=== PATIENT | female | born 1980 | race African-American/Black ===

== ENCOUNTER 2018-01-13 18:34 | Emergency (ER) | payer BC | END 2018-01-13 20:20 | disposition left against medical advice (07) | LOC: ERS 18:34 | DX: Z53.21 Procedure and treatment not carried out due to patient leaving prior to being seen by health care provider (principal) ==

== ENCOUNTER 2018-01-13 21:19 | Emergency (ER) | payer BC, OTHER | END 2018-01-13 22:42 | disposition home or self-care (01) | LOC: SCSER 21:19 | DX: J32.9 Chronic sinusitis, unspecified (principal); F17.210 Nicotine dependence, cigarettes, uncomplicated | CPT/HCPCS: 99406 ==

== ENCOUNTER 2018-02-20 18:51 | Emergency (ER) | payer BC, OTHER, SELFPAY ==
[2018-02-20] MEDS ORDERED: Ketorolac Tromethamine 30 MG/ML VIAL ONE (19:42)
[2018-02-20] MEDS ORDERED: Morphine 4 MG/ML VIAL ONE (19:42)
[2018-02-20 20:09] LABS: #Basophils 0.1 thou/uL (0.0-0.2); #Eosinphils 0.6 thou/uL (0.0-0.7); #Lymphocytes 2.5 thou/uL (1.20-3.40); #Monocytes 0.5 thou/uL (0.11-0.59); %Basophils 1.6 % (0.0-1.0); %Eosinophils 8.4 % (0.0-10.0); %Lymphocytes 37.3 % (21.0-51.0); %Monocytes 7.1 % (0.0-10.0); %Neutrophils 45.6 % (42.0-75.0); Hemoglobin 13.5 g/dL (12.0-16.0); Mean Corpuscular HGB CONC 33.4 g/dL (32.0-36.0); Mean Corpuscular Hemoglobin 30.6 pg (27.0-31.0); Mean Corpuscular Volume 91.6 fl (81.0-99.0); Mean Platelet Volume 7.7 fL (7.4-10.4); Platelet Count 262 thou/uL (130-400); RBC Distribution Width 13.3 % (11.5-14.5); White Blood Cell (WBC) Count 6.6 thou/uL (4.8-10.8)
[2018-02-20 20:29] LABS: ALT (SGPT) 13 U/L (8-55); AST (SGOT) 20 U/L (5-34); Alkaline Phosphatase 92 U/L (40-150); Anion Gap 13 mmol/L (10-20); BUN (Urea Nitrogen) 12 mg/dL (7.0-18.7); Bilirubin, Total 0.3 mg/dL (0.2-1.2); Calc. Creatinine Clearance 0 mL/min (70-130); Calcium 9.3 mg/dL (7.8-10.44); Carbon Dioxide 23 mmol/L (22-29); Chloride 107 mmol/L (98-107); Estimated GFR-MDRD Greater than 90; Globulin 3.6 g/dL (2.4-3.5); Glucose 106 mg/dL (70-105); Lipase 154 U/L (8-78); Potassium 4.5 mmol/L (3.5-5.1); Protein, Total 7.6 g/dL (6.0-8.3); Sodium 138 mmol/L (136-145)
[2018-02-20 21:12] LABS: Bilirubin Small (Negative); Blood, Urine Negative (Negative); Clarity CLEAR (Clear); Glucose, Urine (Dipstick) Negative (Negative); Leukocyte Negative (Negative); Nitrite Negative (Negative); Pregnancy Test - Urine (BHCG) Negative (Negative); Pregu Control Background? CLEAR/WHITE (CLR/WHITE); Pregu Control Bar Appear? YES (CONTROL BAR); Protein, Urine (Dipstick) Negative (Neg-Trace); Specific Gravity 1.037 (1.002-1.036); Specific Gravity, Urine 1.037 (1.002-1.036)
--- NOTE | 2018-02-20 22:25 | CT ---
NONCONTRAST CT ABDOMEN AND PELVIS: 02/20/18 HISTORY: Left flank pain with radiation of pain to the back since 9 a.m. this morning. COMPARISON: Contrasted study on 04/20/17. FINDINGS: There are two stable subcentimeter hypodense lesions seen within the inferior aspect posterior segmen t right hepatic lobe with are too small to further characterize. The lung bases, spleen, pancreas, bilateral adrenal glands, kidneys, and uterus demonstrate a grossl y normal nonenhanced CT appearance. The urinary bladder is decompressed but also grossly normal in ap pearance. No renal or ureteral calculi are seen bilaterally, and there is no hydronephrosis seen. Phleboliths are again seen in the pelvis. The appendix is visualized and normal in caliber. A few colonic diverticula are seen without CT evidence of diverticulitis. There is a small to moderat e amount of retained fecal material seen throughout the colon. Small fat containing umbilical hernia is noted. Dominant follicles are seen within the region of the left ovary. The previously noted large cyst in t he left adnexal region is not seen on today's exam. IMPRESSION: 1. No renal or ureteral calculi are seen bilaterally, and there is no evidence of hydronephrosis . 2. No CT evidence of appendicitis. 3. Constipation with colonic diverticulosis. POS: JAMES
== END 2018-02-20 22:18 | disposition home or self-care (01) ==
LOC: ERS 18:51
DX: Z79.899 Other long term (current) drug therapy; F17.210 Nicotine dependence, cigarettes, uncomplicated; R10.32 Left lower quadrant pain
CPT/HCPCS: 74176; 80053; 81003; 81025; 83690; 85025; 96374; 96375; J1885; J2270

== ENCOUNTER 2018-03-23 13:59 | Outpatient (CLI) | payer OTHER ==
--- NOTE | 2018-03-23 16:27 | ULT ---
PELVIC ULTRASOUND: 03/23/18 COMPARISON: CT abdomen/pelvis 02/20/18. HISTORY: Lower abdominal and pelvic pain that is intermittent for two years and is associated with sexual inte rcourse. TECHNIQUE: Multiplanar beaver scale and color doppler images were obtained in a transabdominal and transvaginal pe lvic ultrasound. Spectral analysis of the doppler waveforms were performed. FINDINGS: The uterus is enlarged and contains intramural and exophytic masses measuring up to 2.7 cm in size. T hese represent fibroids. The endometrial stripe is upper limits of normal measuring 9 mm. No free fluid is seen in the pelvis. The right ovary is normal in size and appearance and demonstrate normal internal flow. Left ovary is not visualized. IMPRESSION: Fibroid uterus. POS: MEGA
== END 2018-03-23 14:00 | disposition home or self-care (01) ==
LOC: SCSULT 13:59
PROVIDERS: ATTEND Family Medicine
DX: R10.2 Pelvic and perineal pain (principal); D25.9 Leiomyoma of uterus, unspecified
CPT/HCPCS: 76856

== ENCOUNTER 2018-12-10 11:14 | Emergency (ER) | payer BC, OTHER ==
[2018-12-10] MEDS ORDERED: predniSONE 20 MG TAB ONE (12:42)
--- NOTE | 2018-12-10 14:11 | RAD ---
FRONTAL AND LATERAL IMAGING CHEST: Date: 12-10-18 Comparison: 11-20-16 History: Cough, asthma. FINDINGS: There is no pneumothorax, pleural fluid, focal consolidation, or alveolar edema. Heart and mediastina l contours are stable. No acute findings are seen. IMPRESSION: No acute findings. POS: [facility]
== END 2018-12-10 13:52 | disposition home or self-care (01) ==
LOC: ERS 11:14
DX: J45.901 Unspecified asthma with (acute) exacerbation (principal); J06.9 Acute upper respiratory infection, unspecified; F17.210 Nicotine dependence, cigarettes, uncomplicated; Z79.899 Other long term (current) drug therapy
CPT/HCPCS: 71046; 94640; J7506; J7620

== ENCOUNTER 2019-02-08 14:29 | Outpatient (CLI) | payer BC ==
--- NOTE | 2019-02-08 16:07 | ULT ---
RIGHT BREAST ULTRASOUND: HISTORY: Bilateral breast pain. FINDINGS: Sonographic evaluation of the regions of pain in the right upper breast and in the left breast (1 thr ough 6 o'clock) demonstrate no abnormality. IMPRESSION: BI-RADS category 1-Negative. Return to annual mammographic screening. POS: OFF
--- NOTE | 2019-02-24 14:35 | MMO ---
Bilateral MAMMO Bilat Diag [facility]. CLINICAL HISTORY: Patient is 38 years old and is seen for diagnostic exam. The patient has the following family history of breast cancer: mother, at age 31. The patient has no personal history of cancer. VIEWS: The views performed were: bilateral craniocaudal with tomosynthesis; bilateral mediolateral oblique with tomosynthesis; and bilateral mediolateral. FILMS COMPARED: The present examination has been compared to prior imaging studies performed at [facility] on 04/18/2013 and 02/08/2019. MAMMOGRAM FINDINGS: There are scattered fibroglandular densities. There are no suspicious masses, suspicious calcifications, or new areas of architectural distortion. IMPRESSION: THERE IS NO MAMMOGRAPHIC EVIDENCE OF MALIGNANCY. A ROUTINE FOLLOW-UP MAMMOGRAM IN 1 YEAR IS RECOMMENDED. THE RESULTS OF THIS EXAM WERE SENT TO THE PATIENT. ACR BI-RADS Category 1 - Negative MAMMOGRAPHY NOTE: 1. A negative mammogram report should not delay a biopsy if a dominant of clinically suspicious mass is present. 2. Approximately 10% to 15% of breast cancers are not detected by mammography. 3. Adenosis and dense breasts may obscure an underlying neoplasm.
== END 2019-02-08 14:30 | disposition home or self-care (01) ==
LOC: BICMAMMO 14:29
PROVIDERS: ATTEND Nurse Practitioner Family
DX: N64.4 Mastodynia (principal); Z80.3 Family history of malignant neoplasm of breast
CPT/HCPCS: 77066; G0279

== ENCOUNTER 2020-01-15 18:30 | Observation (INO) | payer BC, SELFPAY ==
[2020-01-15 19:26] LABS: #Basophils 0.1 thou/uL (0.0-0.2); #Eosinphils 1.1 thou/uL (0.0-0.7); #Lymphocytes 2.4 thou/uL (1.20-3.40); #Monocytes 0.9 thou/uL (0.11-0.59); #Neutrophils 4.2 thou/uL (1.40-6.50); %Basophils 0.8 % (0.0-1.0); %Eosinophils 12.3 % (0.0-10.0); %Lymphocytes 28.3 % (21.0-51.0); %Monocytes 10.6 % (0.0-10.0); Hemoglobin 6.5 g/dL (12.0-16.0); Mean Corpuscular HGB CONC 29.2 g/dL (32.0-36.0); Mean Corpuscular Hemoglobin 19.8 pg (27.0-31.0); Mean Corpuscular Volume 67.6 fL (78.0-98.0); Mean Platelet Volume 8.6 fL (7.4-10.4); Platelet Count 404 thou/uL (130-400); Red Blood Cell (RBC) Count 3.31 mill/uL (4.20-5.40); White Blood Cell (WBC) Count 8.6 thou/uL (4.8-10.8)
[2020-01-15 19:43] LABS: ALT (SGPT) 14 U/L (8-55); AST (SGOT) 19 U/L (5-34); Albumin 4.2 g/dL (3.5-5.0); Alkaline Phosphatase 86 U/L (40-110); Anion Gap 11 mmol/L (10-20); Anisocytosis SLIGHT = 6-15 cells (100X) (0-5/hpf); BUN (Urea Nitrogen) 6 mg/dL (7.0-18.7); Bilirubin, Total 0.3 mg/dL (0.2-1.2); Calc. Creatinine Clearance 0 mL/min (70-130); Calcium 9.2 mg/dL (7.8-10.44); Carbon Dioxide 26 mmol/L (22-29); Chloride 105 mmol/L (98-107); Estimated GFR-MDRD Greater than 90; Globulin 3.2 g/dL (2.4-3.5); Glucose 94 mg/dL (70-105); Hypochromia MODERATE=16-30 cells (100X) (0-5/hpf); MDiff Complete? YES; Microcytosis MODERATE=15-30 cells (100X) (0-5/hpf); Platelet Morphology Comment Appears Increased; Polychromasia MODERATE = 3-4 cells (100X) (0-2/hpf); Potassium 4.5 mmol/L (3.5-5.1); Protein, Total 7.4 g/dL (6.0-8.3); Schistocytes SLIGHT = 2-5 cells (100X) (0-1/hpf); Sodium 137 mmol/L (136-145); Target Cells SLIGHT = 2-5 cells (100X) (0-1/hpf); Tear Drops SLIGHT = 2-5 cells (100X) (0-1/hpf)
[2020-01-15] MEDS ORDERED: Pantoprazole 40 MG VIAL IVP SCH (22:15)
--- NOTE | 2020-01-15 23:04 | HP ---
PRIMARY CARE PHYSICIAN: Gaye Becerril NP CHIEF COMPLAINT: Weakness and fatigue, hematochezia x2 weeks. HISTORY OF PRESENT ILLNESS: The patient is a 39-year-old female with a past medical history significant for anemia, fibroids, and GERD, who presents to the ER with the above complaint. The patient reports over the past week, she has been feeling significantly tired and weak. She reports that on Thursday evening, "I got really bad", reporting diarrhea, approximately 5-10 stools per day with bright red blood. She reports some associated abdominal cramping and nausea. She reports seeing some clots in the toilet bowl. Reports pain with BMs, She denies any vomiting, hematemesis, or any chronic NSAID usage. She denies any vaginal discharge or bleeding. Although she does report that her menstrual periods have been irregular, she has not had one in the last 30 days. Her last episode of bloody stool was yesterday, she has had none today, She denies any chest pain. She denies any shortness of breath. She denies any fever or chills. The patient had a colonoscopy 3 years ago and there were some benign polyps removed and she was diagnosed with some internal hemorrhoids. In the ER, the patient was found to be hemodynamically stable. Vital signs; temperature 98.3, blood pressure 120/66, heart rate of 87, respirations of 18. She is 99% on room air. Her hemoglobin was found to be 6.5. Her hematocrit was 22.3. FOBT still is pending. The patient was typed and crossed with orders to transfuse 2 units when ready. PAST MEDICAL HISTORY: Significant for, 1. Anemia. 2. Fibroids. 3. GERD. 4. Seasonal allergies. PAST SURGICAL HISTORY: 1. The patient has had a tubal ligation. 2. x2. ALLERGIES: THE PATIENT REPORTS NO KNOWN DRUG ALLERGIES, DENIES ANY ALLERGIES TO AMOXICILLIN. MEDICATIONS: The patient takes, 1. Zyrtec 10 mg p.o. daily. 2. Omeprazole 40 p.o. daily. 3. Albuterol HFA inhaler 1 to 2 puffs p.r.n. wheezing or shortness of breath. SOCIAL HISTORY: The patient lives in [place] with her 2 children. 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 She admits to smoking 2 to 3 cigarettes per day, uses marijuana intermittently, and drinks socially. FAMILY HISTORY: Noncontributory for cardiac disease, noncontributory for pulmonary disease. REVIEW OF SYSTEMS: All other review of systems are negative unless otherwise noted in the HPI. PHYSICAL EXAMINATION: VITAL SIGNS: Temperature 98.3 Fahrenheit oral, blood pressure 120/66, heart rate 87, respirations 16. The patient is 99% on room air. Vital Signs Reviewed, Patient afebrile, Pulse normal, Blood pressure, hypertensive, Respiratory rate normal, Patient alert and oriented to person, place and time. Head exam normal, Head exam included findings of head atraumatic, normocephalic. Eye exam normal, Eye exam included findings of eyelids normal to inspection, Pupils equally round and reactive to light, Extraocular muscles intact, no nystagmus. Neck exam normal, Neck exam included findings of normal range of motion, Trachea midline, no meningeal signs, no cervical adenopathy, no tenderness. Respiratory and chest exam normal, Respiratory exam included findings of no respiratory distress, Breath sounds clear. Cardiovascular assessment normal, Cardiovascular exam included findings of heart rate regular rate and rhythm, Heart sounds normal. Abdominal exam included findings of abdomen nontender, Active bowel sounds, no distension, no mass, no pulsatile masses, no peritoneal signs, no rigidity, no guarding, no rebound, Rovsing's sign absent. Back exam normal, Back exam included findings of normal inspection, range of motion normal, no tenderness. Upper extremity exam normal, Upper extremity exam included findings of inspection normal, Range of motion normal, Motor strength normal, Sensation intact, Radial pulse normal. Lower extremity exam normal, Lower extremity exam included findings of inspection normal, Range of motion normal, Motor strength normal, Sensation intact, Posterior tibial pulse normal, Pedal pulse normal. Neuro exam normal, Neuro exam findings include patient oriented to person, place and time, Speech normal. Skin exam normal, Skin exam included findings of skin warm, dry, and normal in color, no rash. LABORATORY DATA: White blood cell count was 8.6, red blood cells 3.31, hemoglobin 6.5, hematocrit 22.3, platelets 404. Sodium is 137, potassium 4.5, chloride 105 , carbon dioxide 26, BUN 6, creatinine 0.83, glucose 94, calcium 9.2. AST 19, ALT 14, alkaline phosphatase 86. EKG; normal sinus rhythm. IMPRESSION: 1. Gastrointestinal bleed. 2. Acute blood loss anemia. 3. History of anemia. 4. History of fibroids. 5. Gastroesophageal reflux disease. 6. Seasonal allergies. 7. Marijuana abuse 8. Tobacco abuse PLAN: The patient's hemoglobin was 6.5. The patient has been typed and crossed for 2 units of packed red blood cells. We will transfuse 2 units of packed red blood cells. We will recheck hemoglobin and hematocrit q.4 hours. We will make the patient n.p.o. We will consult GI. We will check iron studies, PT, INR, and urine . We will place the patient on PPI q.12. We will infuse IV fluids, normal saline. We will check orthostatics q. shift. Restart home medications when reconciled by nursing. Hold blood thinners. No DVT prophylaxis. Full Code REXOA Nehal Caruso @ [phone]. Job ID: [id number] MTDD
[2020-01-15 23:18] VITALS: BMI 43.5
[2020-01-15] MEDS: Sodium Chloride 0.9% 1,000 ML IV SCH (23:39)
[2020-01-16] MEDS ORDERED: Sodium Chloride 0.65% Nasal 44 ML BOT EA NARE PRN (01:50)
[2020-01-16] MEDS: Cetirizine HCl 10 MG TAB PO SCH ×2 (03:33→03:42)
[2020-01-16] MEDS: Sodium Chloride 0.9% 1,000 ML IV SCH ×3 (03:35→18:21)
[2020-01-16 04:40] LABS: BHCG - Serum Negative (NEGATIVE); Pregs Control Background? CLEAR/WHITE (CLR/WHITE); Pregs Control Bar Appear? YES (CONTROL BAR)
[2020-01-16] MEDS ORDERED: diphenhydrAMINE 25 MG CAP PO SCH (04:45)
[2020-01-16 04:48] LABS: PTT 25.2 SEC (22.9-36.1); Prothrombin Time 12.8 SEC (12.0-14.7)
[2020-01-16 04:54] LABS: Iron 58 ug/dL (50-170); Iron Binding Capacity, Total 504 mcg/dL (265-497)
[2020-01-16 05:21] LABS: Ferritin 2.04 ng/mL (10-291)
[2020-01-16 05:51] LABS: #Basophils 0.1 thou/uL (0.0-0.2); #Lymphocytes 2.9 thou/uL (1.20-3.40); #Monocytes 0.7 thou/uL (0.11-0.59); #Neutrophils 3.9 thou/uL (1.40-6.50); %Basophils 1.1 % (0.0-1.0); %Eosinophils 11.4 % (0.0-10.0); %Monocytes 8.1 % (0.0-10.0); %Neutrophils 45.5 % (42.0-75.0); Anisocytosis MODERATE=16-30 cells (100X) (0-5/hpf); Hemoglobin 8.8 g/dL (12.0-16.0); MDiff Complete? YES; Mean Corpuscular HGB CONC 31.2 g/dL (32.0-36.0); Mean Corpuscular Hemoglobin 22.9 pg (27.0-31.0); Mean Corpuscular Volume 73.2 fL (78.0-98.0); Platelet Count 403 thou/uL (130-400); RBC Distribution Width 22.7 % (11.5-14.5); Red Blood Cell (RBC) Count 3.84 mill/uL (4.20-5.40); White Blood Cell (WBC) Count 8.6 thou/uL (4.8-10.8)
[2020-01-16] MEDS ORDERED: hydrOXYzine 25 MG TAB PO SCH (06:45)
[2020-01-16] MEDS ORDERED: Pantoprazole 40 MG VIAL IVP SCH ×2 (09:00)
[2020-01-16 19:14] VITALS: BP 125/74; TEMP 98.1
--- NOTE | 2020-01-17 01:33 | CON ---
DATE OF CONSULTATION: 01/16/2020 REASON FOR CONSULTATION: Hematochezia, anemia due to blood loss. HISTORY OF PRESENT ILLNESS: Ms. Carmen Hall is a 39-year-old female hospitalized with lots of hematochezia, anemia due to blood loss, weakness and fatigue etc. She is feeling actually whole lot better today. She has had no bleeding today. She is very anxious to get home. The patient had seen me I believe 2 to 3 years ago and also has seen Dr. Javan Mitchell in April 2017. She has a history of hematochezia over the years and has anemia over the years. She had a colonoscopy in April 2017 and was found to have hemorrhoids. No other pathology seen. She also had an EGD done, which was negative for any pathology. The patient has history of hematochezia off and on. She has history of constipation off and on. When she strains during bowel movement, she has seen large amount of blood. Also when the stool is soft, she has seen some blood in the commode. She has no history of heavy menstrual blood loss. In fact, her menstrual cycles are tapering off and she has been having every other month. She had periods in November 2019 and no periods in December. The patient never bleeds heavily as per the patient. The patient has had hematochezia, which is actually painless and also some loose stools off and on. No history of any fever. There is remote history of ulcerative colitis in 2011 when she was living in [place]. However, she had a colonoscopy I believe in 2015 locally and was negative. In 2016, she had a colonoscopy and was negative for any pathology. She had no history of any fever, no weight loss. She had abdominal pain, nausea, and vomiting. No relevant history. MEDICAL ILLNESSES: 1. Anemia. 2. Fibroids. 3. Hemorrhoids from previous colonoscopy. 4. Chronic acid reflux. 5. Seasonal allergies. PAST SURGICAL HISTORY: Tubal ligation, x2. ALLERGIES: ALLERGIC TO AMOXICILLIN. MEDICATIONS: At home include; 1. Zyrtec. 2. Omeprazole. 3. Albuterol inhaler. SOCIAL HISTORY: The patient lives in [place]. She works for [employer]. She smokes 2 to 4 cigarettes per day. Drinks socially. She uses marijuana off and on. FAMILY HISTORY: No family history of heart disease. No cancer. No CVA. REVIEW OF SYSTEMS: A 10-point system review remarkable basically for fatigue, tiredness, hematochezia, rectal bleeding and diarrhea. PHYSICAL EXAMINATION: GENERAL: She is obese, appears very comfortable. She is awake, alert, oriented to time, place, and person. VITAL SIGNS: She is afebrile. Pulse is 80, blood pressure 130/70. HEENT: Conjunctivae are clear. NECK: Supple. No adenitis or thyromegaly noted. CARDIOVASCULAR: First and second heart sounds heard. LUNGS: Clear to auscultation. ABDOMEN: Soft. No organomegaly. No tenderness. No masses. EXTREMITIES: Reveal no edema. LABORATORY DATA: CBC; WBC 8,600, hemoglobin 6.5, hematocrit 22.3, MCV 67.6, platelet count 404,000, polymorphs 48, lymphocytes 28, monocytes 10. Post transfusion hemoglobin 9.9, hematocrit 29.1. Chem-7 is actually normal. LFTs normal. CLINICAL IMPRESSION: A 39-year-old female with hematochezia. The patient has had 2 colonoscopies in the last 4 years. Last one was done in April 2017, which is less than 3 years ago. She was found to have hemorrhoids and no other pathology seen. The patient has a history of anemia over the years. The anemia is due to chronic blood loss and at the present time she got actually menstruated heavily. Since she had a colonoscopy less than 3 years ago, I do not see any reason for a repeat colonoscopy. RECOMMENDATION: 1. Iron supplement on a regular basis. 2. May take her milk of magnesia along with iron supplement to prevent constipation. 3. The patient will come back to see me in the next couple of months. We will repeat CBC as outpatient and folate. Job ID: [id number]
--- NOTE | 2020-01-17 15:03 | DIS ---
DATE OF ADMISSION: 01/15/2020 DATE OF DISCHARGE: 01/16/2020 HOSPITAL COURSE: Ms. Hall is a 39-year-old female with a medical history of fibroids and internal hemorrhoids, who presented with hematochezia. She recently had two colonoscopies and was found to have hemorrhoids with no other pathology. She has had this anemia for years as well as bleeding. GI was consulted and deemed it due to her hemorrhoids. Her hemoglobin was stable throughout inpatient stay and GI said there was no indication for further workup. The patient was discharged with iron supplementation as well as bowel regimen to prevent constipation and followup appointment with GI. PROBLEMS: Rectal bleeding due to internal hemorrhoids. The patient's hemoglobin has been stable throughout inpatient stay. The patient has been hemodynamically stable with no signs of acute anemia. Prior to discharge, she was instructed regarding preventive measures and was prescribed with bowel regimen. Appointment with GI was made for followup of internal hemorrhoids. Job ID: [id number]
== END 2020-01-16 20:39 | disposition home or self-care (01) ==
LOC: ERS 18:30 → SURG A 21:10
PROVIDERS: ADMIT Internal Medicine; ATTEND Internal Medicine
DX: K64.8 Other hemorrhoids (principal); D62 Acute posthemorrhagic anemia; K21.9 Gastro-esophageal reflux disease without esophagitis; F12.10 Cannabis abuse, uncomplicated; F17.210 Nicotine dependence, cigarettes, uncomplicated; Z79.899 Other long term (current) drug therapy; Z88.0 Allergy status to penicillin
CPT/HCPCS: 36415; 36430; 80053; 82607; 82728; 82746; 83540; 83550; 84703; 85025; 85610; 85730; 86850; 86870; 86900; 86901; 86922; 96361; 96374; 99291; C9113; G0378; P9016; Q0163

== ENCOUNTER 2021-05-19 11:07 | Inpatient (IN) | payer BC, OTHER, SELFPAY ==
[~2021-05-19 11:07] MED LIST: Iopamidol-370 76% 500 ML 1 ML ONE
[2021-05-19 12:18] LABS: Anisocytosis SLIGHT = 6-15 cells (100X) (0-5/hpf); Band 18 % (5-11); Eosinophils 5 % (0-10); Hypochromia MODERATE=16-30 cells (100X) (0-5/hpf); Lymphocytes 32 % (21-51); MDiff Complete? YES; Mean Corpuscular HGB CONC 28.8 g/dL (32.0-36.0); Mean Corpuscular Hemoglobin 21.1 pg (27.0-31.0); Mean Corpuscular Volume 73.4 fL (78.0-98.0); Mean Platelet Volume 7.9 fL (7.4-10.4); Microcytosis SLIGHT = 6-15 cells (100X) (0-5/hpf); Monocytes 8 % (0-10); Neutrophil 37 % (42-75); Nucleated RBC 1 % (0); Platelet Count 740 thou/uL (130-400); Poikilocytosis SLIGHT = 6-15 cells (100X) (0-5/hpf); Red Blood Cell (RBC) Count 3.32 mill/uL (4.20-5.40); Reflex for Review?? YES; Target Cells SLIGHT = 2-5 cells (100X) (0-1/hpf); Vacuoles SLIGHT; White Blood Cell (WBC) Count 9.6 thou/uL (4.8-10.8)
[2021-05-19 12:19] LABS: Bacteria/HPF None Seen HPF (None Seen); Bilirubin Negative (Negative); Blood, Urine Negative (Negative); Clarity Clear (Clear); Glucose, Urine (Dipstick) Normal (Negative); Ketone, Urine 20 mg/dL (Negative); Leukocyte Negative Leu/uL (Negative); Nitrite Negative (Negative); Protein, Urine (Dipstick) 50 mg/dL (Neg-Trace); RBC/HPF 0-3 HPF (0-3); Specific Gravity, Urine 1.029 (1.002-1.036); Squamous Epithelial 0-3 HPF (0-3); Urobilinogen Normal mg/dL (Less than 2)
[2021-05-19 12:20] LABS: Pregnancy Test - Urine (BHCG) Negative (Negative); Pregu Control Background? CLEAR/WHITE (CLR/WHITE); Pregu Control Bar Appear? YES (CONTROL BAR); Specific Gravity 1.029 (1.002-1.036)
[2021-05-19] MEDS ORDERED: Morphine 4 MG/ML VIAL ONE ×2 (13:08→15:07)
[2021-05-19] MEDS ORDERED: Ondansetron PF 4 MG/2 ML Vial ONE (13:08)
[2021-05-19 13:14] LABS: Albumin 3.7 g/dL (3.5-5.0)
[2021-05-19 13:15] LABS: Chloride 100 mmol/L (98-107); Sodium 137 mmol/L (136-145)
[2021-05-19 13:16] LABS: Calcium 8.7 mg/dL (7.8-10.44); Globulin 3.3 g/dL (2.4-3.5); Glucose 105 mg/dL (70-105)
[2021-05-19 13:18] LABS: Anion Gap 15 mmol/L (10-20); Bilirubin, Total 0.3 mg/dL (0.2-1.2); Carbon Dioxide 25 mmol/L (22-29)
[2021-05-19 13:19] LABS: Alkaline Phosphatase 73 U/L (40-110)
[2021-05-19 13:20] LABS: BUN (Urea Nitrogen) 5 mg/dL (7.0-18.7); Calc. Creatinine Clearance 0 mL/min (70-130)
[2021-05-19 13:21] LABS: AST (SGOT) 15 U/L (5-34)
[2021-05-19 13:22] LABS: ALT (SGPT) 10 U/L (8-55)
[2021-05-19] MEDS ORDERED: Sodium Chloride 0.9% 100 ML ONE (13:22)
[2021-05-19] MEDS ORDERED: Cefepime 2 GM VIAL ONE (13:22)
[2021-05-19 13:28] LABS: Potassium 2.9 mmol/L (3.5-5.1)
[2021-05-19] MEDS ORDERED: metroNIDAZOLE 500 MG/100 ML BAG ONE (13:48)
[2021-05-19] MEDS ORDERED: Potassium Chloride 20 MEQ/100 ML PREMIX BAG ONE (14:10)
[2021-05-19] MEDS ORDERED: Potassium Chloride 20 MEQ TAB ONE (14:11)
[2021-05-19] MEDS: Sodium Chloride 0.9% 1,000 ML IV SCH ×2 (16:14→22:42)
[2021-05-19 16:24] VITALS: BMI 43.3
[2021-05-19 21:02] LABS: SARS-CoV-2 PCR by NAA Not Detected (NotDetected)
[2021-05-19] MEDS: metroNIDAZOLE 500 MG in Premix Bag 1 BAG IVPB SCH (21:29)
[2021-05-19] MEDS: Pantoprazole 40 MG VIAL IVP SCH (21:32)
[2021-05-19] MEDS: Morphine 2 MG/ML VIAL SLOW IVP PRN (22:38)
[2021-05-20] MEDS: Sodium Chloride 0.9% 1,000 ML IV SCH ×3 (05:04→18:10)
[2021-05-20] MEDS: metroNIDAZOLE 500 MG in Premix Bag 1 BAG IVPB SCH ×3 (05:04→21:08)
[2021-05-20] MEDS: Morphine 2 MG/ML VIAL SLOW IVP PRN ×4 (05:05→19:57)
[2021-05-20 06:15] LABS: Anion Gap 9 mmol/L (10-20); BUN (Urea Nitrogen) 5 mg/dL (7.0-18.7); Band 20 % (5-11); Calc. Creatinine Clearance 165 mL/min (70-130); Calcium 8.6 mg/dL (7.8-10.44); Carbon Dioxide 28 mmol/L (22-29); Chloride 102 mmol/L (98-107); Eosinophils 11 % (0-10); Glucose 91 mg/dL (70-105); Hemoglobin 8.3 g/dL (12.0-16.0); Hypochromia SLIGHT = 6-15 cells (100X) (0-5/hpf); Lymphocytes 17 % (21-51); MDiff Complete? YES; Mean Corpuscular HGB CONC 29.7 g/dL (32.0-36.0); Mean Corpuscular Hemoglobin 23.2 pg (27.0-31.0); Mean Corpuscular Volume 78.2 fL (78.0-98.0); Mean Platelet Volume 7.6 fL (7.4-10.4); Monocytes 9 % (0-10); Neutrophil 42 % (42-75); Nucleated RBC 4 % (0); Platelet Count 619 thou/uL (130-400); Platelet Morphology Comment Appears Increased; Polychromasia SLIGHT = 2-3 cells (100X) (0-2/hpf); Potassium 3.4 mmol/L (3.5-5.1); RBC Distribution Width 22.2 % (11.5-14.5); Red Blood Cell (RBC) Count 3.57 mill/uL (4.20-5.40); Sodium 136 mmol/L (136-145); White Blood Cell (WBC) Count 9.4 thou/uL (4.8-10.8)
[2021-05-20] MEDS: Pantoprazole 40 MG VIAL IVP SCH ×2 (09:19→19:57)
[2021-05-20] MEDS ORDERED: GoLYTELY 4,000 ml Bottle PO SCH (16:00)
[2021-05-21] MEDS: Sodium Chloride 0.9% 1,000 ML IV SCH ×2 (02:49→06:10)
[2021-05-21] MEDS: Morphine 2 MG/ML VIAL SLOW IVP PRN (02:49)
[2021-05-21 05:58] LABS: Anion Gap 14 mmol/L (10-20); BUN (Urea Nitrogen) Less than 4 mg/dL (7.0-18.7); Calc. Creatinine Clearance 169 mL/min (70-130); Carbon Dioxide 22 mmol/L (22-29); Chloride 103 mmol/L (98-107); Glucose 105 mg/dL (70-105); Potassium 3.2 mmol/L (3.5-5.1); Sodium 136 mmol/L (136-145)
[2021-05-21] MEDS: metroNIDAZOLE 500 MG in Premix Bag 1 BAG IVPB SCH (06:11)
[2021-05-21 06:50] LABS: Anisocytosis MODERATE=16-30 cells (100X) (0-5/hpf); Band 21 % (5-11); Eosinophils 3 % (0-10); Hemoglobin 7.6 g/dL (12.0-16.0); Hypochromia SLIGHT = 6-15 cells (100X) (0-5/hpf); Lymphocytes 17 % (21-51); MDiff Complete? YES; Mean Corpuscular HGB CONC 29.6 g/dL (32.0-36.0); Mean Corpuscular Hemoglobin 22.9 pg (27.0-31.0); Mean Corpuscular Volume 77.4 fL (78.0-98.0); Metamyelocyte 1 % (0-0); Monocytes 19 % (0-10); Myelocyte 2 % (0-0); Neutrophil 37 % (42-75); Nucleated RBC 3 % (0); Platelet Count 575 thou/uL (130-400); RBC Distribution Width 22.3 % (11.5-14.5); Red Blood Cell (RBC) Count 3.29 mill/uL (4.20-5.40); White Blood Cell (WBC) Count 11.3 thou/uL (4.8-10.8)
[2021-05-21] MEDS: Pantoprazole 40 MG VIAL IVP SCH (08:57)
[2021-05-21] MEDS ORDERED: Potassium Chloride 20 MEQ TAB PO SCH (11:00)
[2021-05-21] MEDS ORDERED: PROPOFOL 200 MG/20 ML VIAL ONE (12:13)
[2021-05-21 15:13] VITALS: BP 114/75; TEMP 98.4
[2021-05-22] MEDS ORDERED: methylPREDNISolone Sod Succ 40 MG VIAL IVP SCH (09:00)
== END 2021-05-21 15:32 | disposition home or self-care (01) | DRG 386 ==
LOC: ERS 11:07 → T4-A 13:45
PROVIDERS: ADMIT Internal Medicine; ATTEND Internal Medicine
PROC: 30233N1 Transfusion of Nonautologous Red Blood Cells into Peripheral Vein, Percutaneous Approach (ICD-10-PCS; 2021-05-19)
PROC: 0DJD8ZZ Inspection of Lower Intestinal Tract, Via Natural or Artificial Opening Endoscopic (ICD-10-PCS; principal; 2021-05-21)
DX: K51.90 Ulcerative colitis, unspecified, without complications (principal); D62 Acute posthemorrhagic anemia; E87.6 Hypokalemia; K29.50 Unspecified chronic gastritis without bleeding; D50.9 Iron deficiency anemia, unspecified; Z20.822 Contact with and (suspected) exposure to COVID-19; K21.9 Gastro-esophageal reflux disease without esophagitis; Z88.1 Allergy status to other antibiotic agents; Z98.51 Tubal ligation status
CPT/HCPCS: 36415; 36430; 74177; 80048; 80053; 81003; 81015; 81025; 82274; 83605; 85025; 85060; 85652; 86140; 86850; 86870; 86880; 86900; 86901; 86922; 87040; 87045; 87046; 87324; 87328; 87329; 87427; 87449; 93005; 96365; 96375; C9113; J0692; J1956; J2270; J2405; J2704; J3480; J3490; P9016; Q9967; U0003; U0005

== ENCOUNTER 2021-07-06 10:53 | Inpatient (IN) | payer OTHER ==
[2021-07-06 12:07] LABS: Mean Corpuscular HGB CONC 29.8 g/dL (32.0-36.0); Mean Corpuscular Hemoglobin 20.3 pg (27.0-31.0); Mean Corpuscular Volume 68.2 fL (78.0-98.0); Mean Platelet Volume 7.2 fL (7.4-10.4); Platelet Count 803 thou/uL (130-400); RBC Distribution Width 24.4 % (11.5-14.5); Red Blood Cell (RBC) Count 1.97 mill/uL (4.20-5.40); White Blood Cell (WBC) Count 10.2 thou/uL (4.8-10.8)
[2021-07-06 12:19] LABS: BHCG - Serum Negative (NEGATIVE); Pregs Control Background? CLEAR/WHITE (CLR/WHITE); Pregs Control Bar Appear? YES (CONTROL BAR)
[2021-07-06 12:25] LABS: ALT (SGPT) 12 U/L (8-55); AST (SGOT) 16 U/L (5-34); Albumin 3.7 g/dL (3.5-5.0); Alkaline Phosphatase 86 U/L (40-110); Anion Gap 9 mmol/L (10-20); BUN (Urea Nitrogen) 5 mg/dL (7.0-18.7); Bilirubin, Total 0.4 mg/dL (0.2-1.2); Calc. Creatinine Clearance 0 mL/min (70-130); Calcium 8.6 mg/dL (7.8-10.44); Carbon Dioxide 32 mmol/L (22-29); Chloride 100 mmol/L (98-107); Globulin 3.3 g/dL (2.4-3.5); Glucose 113 mg/dL (70-105); Potassium 3.5 mmol/L (3.5-5.1); Sodium 137 mmol/L (136-145)
[2021-07-06 12:39] LABS: #Eosinphils 0.6 thou/uL (0.0-0.7); #Lymphocytes 2.4 thou/uL (1.20-3.40); #Monocytes 0.8 thou/uL (0.11-0.59); #Neutrophils 6.3 thou/uL (1.40-6.50); %Basophils 0.4 % (0.0-1.0); %Monocytes 8.2 % (0.0-10.0); %Neutrophils 61.4 % (42.0-75.0)
[2021-07-06 13:03] LABS: PTT 20.4 sec (22.9-36.1); Prothrombin Time 13.2 sec (12.0-14.7)
[2021-07-06] MEDS ORDERED: Bacteriostatic Water 30 ML VIAL FS PRN (13:30)
[2021-07-06] MEDS ORDERED: Ondansetron ODT 4 MG TAB PO PRN (13:52)
[2021-07-06] MEDS ORDERED: Ondansetron PF 4 MG/2 ML Vial IVP PRN (13:52)
[2021-07-06] MEDS ORDERED: methylPREDNISolone Sod Succ 40 MG VIAL IVP SCH (14:00)
[2021-07-06] MEDS ORDERED: methylPREDNISolone Sod Succ/PF 125 MG/2 ML VIAL ONE (14:48)
[2021-07-06] MEDS ORDERED: Acetaminophen 325 MG TAB ONE (14:50)
[2021-07-06] MEDS ORDERED: methylPREDNISolone Sod Succ 40 MG VIAL ONE (14:53)
[2021-07-06] MEDS: Acetaminophen 325 MG TAB PO PRN ×2 (15:38→22:11)
[2021-07-06] MEDS: methylPREDNISolone Sod Succ 40 MG VIAL IVP SCH ×2 (15:38→20:59)
[2021-07-06] MEDS: Hydrocortisone/Pramoxine (Proctofoam HC) 10 GM BOX PR SCH ×2 (15:38→21:00)
[2021-07-06] MEDS ORDERED: Albuterol Sulfate 2.5 mg/3 ml Neb NEB PRN (15:52)
[2021-07-06 17:03] LABS: SARS-CoV-2 NAA Rapid Test Not Detected (NotDetected)
[2021-07-06 18:41] VITALS: BMI 45.7
[2021-07-06 19:03] LABS: Hemoglobin 6.5 g/dL (12.0-16.0)
[2021-07-06] MEDS: Pantoprazole 40 MG VIAL IVP SCH (20:59)
[2021-07-06] MEDS: VANCOMYCIN 1.75 GM/350 ML BAG 1.75 GM in Premix Bag 1 BAG IVPB SCH (20:59)
[2021-07-07] MEDS ORDERED: Melatonin 3 MG TAB PO PRN (01:19)
[2021-07-07 05:05] LABS: Anion Gap 12 mmol/L (10-20); BUN (Urea Nitrogen) 9 mg/dL (7.0-18.7); Calc. Creatinine Clearance 178 mL/min (70-130); Calcium 9.1 mg/dL (7.8-10.44); Carbon Dioxide 26 mmol/L (22-29); Chloride 104 mmol/L (98-107); Glucose 167 mg/dL (70-105); Sodium 138 mmol/L (136-145)
[2021-07-07 05:19] LABS: Anisocytosis MARKED = >30 cells (100X) (0-5/hpf); Band 6 % (5-11); Hemoglobin 7.8 g/dL (12.0-16.0); Lymphocytes 7 % (21-51); MDiff Complete? YES; Mean Corpuscular HGB CONC 32.5 g/dL (32.0-36.0); Mean Corpuscular Hemoglobin 25.2 pg (27.0-31.0); Mean Corpuscular Volume 77.4 fL (78.0-98.0); Metamyelocyte 2 % (0-0); Monocytes 1 % (0-10); Myelocyte 3 % (0-0); Neutrophil 81 % (42-75); Nucleated RBC 2 % (0); Platelet Count 643 thou/uL (130-400); Platelet Morphology Comment Appears Increased; Polychromasia SLIGHT = 2-3 cells (100X) (0-2/hpf); RBC Distribution Width 22.3 % (11.5-14.5); Red Blood Cell (RBC) Count 3.11 mill/uL (4.20-5.40); White Blood Cell (WBC) Count 15.9 thou/uL (4.8-10.8)
[2021-07-07] MEDS: methylPREDNISolone Sod Succ 40 MG VIAL IVP SCH ×2 (06:07→14:55)
[2021-07-07 07:11] LABS: Hemoglobin 8.1 g/dL (12.0-16.0); Mean Corpuscular Hemoglobin 24.6 pg (27.0-31.0); Mean Corpuscular Volume 76.8 fL (78.0-98.0); Mean Platelet Volume 7.6 fL (7.4-10.4); Platelet Count 648 thou/uL (130-400); RBC Distribution Width 22.3 % (11.5-14.5)
[2021-07-07 07:35] LABS: MDiff Complete? YES
[2021-07-07 07:36] LABS: Anisocytosis SLIGHT = 6-15 cells (100X) (0-5/hpf); Band 1 % (5-11); Hypersemented Neutrophil SLIGHT; Hypochromia SLIGHT = 6-15 cells (100X) (0-5/hpf); Lymphocytes 5 % (21-51); Monocytes 2 % (0-10); Neutrophil 92 % (42-75); Nucleated RBC 4 % (0); Platelet Morphology Comment Appears Increased
[2021-07-07] MEDS ORDERED: Vancomycin HCl 1.75 GM in Sodium Chloride 0.9% 500 ML IVPB SCH (08:00)
[2021-07-07] MEDS: Pantoprazole 40 MG VIAL IVP SCH (08:21)
[2021-07-07] MEDS: Hydrocortisone/Pramoxine (Proctofoam HC) 10 GM BOX PR SCH ×2 (08:21→14:55)
[2021-07-07] MEDS ORDERED: Iron, Sodium Ferric Gluconate 250 MG in Sodium Chloride 0.9% 250 ML 250 ML IVPB SCH ×2 (09:00→12:00)
[2021-07-07] MEDS: VANCOMYCIN 1.75 GM/350 ML BAG 1.75 GM in Premix Bag 1 BAG IVPB SCH (09:11)
[2021-07-07] MEDS ORDERED: Sodium Chloride 0.9% 1,000 ML IV SCH (10:00)
[2021-07-07 14:50] LABS: Hemoglobin 8.1 g/dL (12.0-16.0); Mean Corpuscular HGB CONC 32.3 g/dL (32.0-36.0); Mean Corpuscular Hemoglobin 24.9 pg (27.0-31.0); Mean Corpuscular Volume 77.1 fL (78.0-98.0); Mean Platelet Volume 7.8 fL (7.4-10.4); Platelet Count 604 thou/uL (130-400); RBC Distribution Width 22.7 % (11.5-14.5); Red Blood Cell (RBC) Count 3.23 mill/uL (4.20-5.40)
[2021-07-07 15:01] LABS: Iron Binding Capacity, Total 559 mcg/dL (265-497)
[2021-07-07 15:12] LABS: #Eosinphils 0.2 thou/uL (0.0-0.7); #Lymphocytes 1.9 thou/uL (1.20-3.40); #Monocytes 0.5 thou/uL (0.11-0.59); #Neutrophils 16.6 thou/uL (1.40-6.50); Anisocytosis MODERATE=16-30 cells (100X) (0-5/hpf); Band 4 % (5-11); Hypochromia SLIGHT = 6-15 cells (100X) (0-5/hpf); Lymphocytes 9 % (21-51); MDiff Complete? YES; Microcytosis SLIGHT = 6-15 cells (100X) (0-5/hpf); Monocytes 3 % (0-10); Neutrophil 84 % (42-75); Nucleated RBC 3 % (0); Ovalocytes SLIGHT = 2-5 cells (100X) (0-1/hpf); Platelet Morphology Comment Appears Increased; Polychromasia MODERATE = 3-4 cells (100X) (0-2/hpf); Target Cells SLIGHT = 2-5 cells (100X) (0-1/hpf); White Blood Cell (WBC) Count 18.9 thou/uL (4.8-10.8)
[2021-07-07 16:10] VITALS: BP 142/63; TEMP 97.1
[2021-07-07 16:17] LABS: Iron 785 ug/dL (50-170)
== END 2021-07-07 19:48 | disposition home or self-care (01) | DRG 386 ==
LOC: ERS 10:53 → ERHOLD 12:59 → 2NO 18:26
PROVIDERS: ADMIT Internal Medicine; ATTEND Nurse Practitioner Acute Care
PROC: 30233N1 Transfusion of Nonautologous Red Blood Cells into Peripheral Vein, Percutaneous Approach (ICD-10-PCS; principal; 2021-07-06)
DX: K51.911 Ulcerative colitis, unspecified with rectal bleeding (principal); L03.115 Cellulitis of right lower limb; D62 Acute posthemorrhagic anemia; Z20.822 Contact with and (suspected) exposure to COVID-19; K21.9 Gastro-esophageal reflux disease without esophagitis; D47.3 Essential (hemorrhagic) thrombocythemia; F17.210 Nicotine dependence, cigarettes, uncomplicated; J45.909 Unspecified asthma, uncomplicated; R19.8 Other specified symptoms and signs involving the digestive system and abdomen; Z88.1 Allergy status to other antibiotic agents; Z79.899 Other long term (current) drug therapy; Z79.52 Long term (current) use of systemic steroids; Z98.51 Tubal ligation status; Z82.49 Family history of ischemic heart disease and other diseases of the circulatory system; Z83.3 Family history of diabetes mellitus; Z80.3 Family history of malignant neoplasm of breast
CPT/HCPCS: 36415; 36430; 71045; 71275; 80048; 80053; 82728; 83540; 83550; 84484; 84703; 85025; 85060; 85379; 85610; 85730; 86850; 86870; 86900; 86901; 86922; 93005; C9113; J2916; J2920; J2930; J3370; J7030; J7050; J8499; P9016; Q9967; U0002; U0005

== ENCOUNTER 2021-07-25 11:02 | Inpatient (IN) | payer BC, SELFPAY ==
[~2021-07-25 11:02] MED LIST changes: -Iopamidol-370 76% 500 ML 1 ML ONE; +Magnevist 469MG/ML 20 ML VIAL ONE
[2021-07-25] MEDS ORDERED: Cefepime 2 GM VIAL ONE (12:51)
[2021-07-25 13:41] LABS: #Basophils 0.1 thou/uL (0.0-0.2); #Eosinphils 0.7 thou/uL (0.0-0.7); #Lymphocytes 1.2 thou/uL (1.20-3.40); #Monocytes 0.7 thou/uL (0.11-0.59); #Neutrophils 7.6 thou/uL (1.40-6.50); %Basophils 0.7 % (0.0-1.0); %Lymphocytes 11.3 % (21.0-51.0); %Monocytes 7.2 % (0.0-10.0); %Neutrophils 73.9 % (42.0-75.0); Hemoglobin 8.3 g/dL (12.0-16.0); Mean Corpuscular Hemoglobin 25.2 pg (27.0-31.0); Mean Corpuscular Volume 84.2 fL (78.0-98.0); Mean Platelet Volume 7.7 fL (7.4-10.4); Platelet Count 737 thou/uL (130-400); Red Blood Cell (RBC) Count 3.28 mill/uL (4.20-5.40); White Blood Cell (WBC) Count 10.2 thou/uL (4.8-10.8)
[2021-07-25 13:43] LABS: BHCG - Serum Negative (NEGATIVE); Pregs Control Background? CLEAR/WHITE (CLR/WHITE); Pregs Control Bar Appear? YES (CONTROL BAR)
[2021-07-25] MEDS ORDERED: Morphine 4 MG/ML VIAL ONE (13:44)
[2021-07-25] MEDS ORDERED: Vancomycin 1 GM/200 ML BAG ONE (13:45)
[2021-07-25 13:59] LABS: Anisocytosis MODERATE=16-30 cells (100X) (0-5/hpf); Hypochromia MODERATE=16-30 cells (100X) (0-5/hpf); MDiff Complete? YES; Platelet Morphology Comment Appears Increased; Polychromasia MODERATE = 3-4 cells (100X) (0-2/hpf); Schistocytes SLIGHT = 2-5 cells (100X) (0-1/hpf); Stomatocytes SLIGHT = 2-5 cells (100X) (0-1/hpf); Target Cells SLIGHT = 2-5 cells (100X) (0-1/hpf); Tear Drops SLIGHT = 2-5 cells (100X) (0-1/hpf)
[2021-07-25 14:07] LABS: ALT (SGPT) 24 U/L (8-55); AST (SGOT) 19 U/L (5-34); Albumin 3.7 g/dL (3.5-5.0); Alkaline Phosphatase 78 U/L (40-110); Anion Gap 10 mmol/L (10-20); BUN (Urea Nitrogen) 9 mg/dL (7.0-18.7); Bilirubin, Total 0.2 mg/dL (0.2-1.2); Calc. Creatinine Clearance 0 mL/min (70-130); Calcium 9.2 mg/dL (7.8-10.44); Carbon Dioxide 30 mmol/L (22-29); Chloride 102 mmol/L (98-107); Globulin 3.2 g/dL (2.4-3.5); Glucose 99 mg/dL (70-105); Potassium 4.5 mmol/L (3.5-5.1); Protein, Total 6.9 g/dL (6.0-8.3); Sodium 137 mmol/L (136-145)
[2021-07-25] MEDS ORDERED: Morphine 2 MG/ML VIAL SLOW IVP PRN (14:49)
[2021-07-25] MEDS ORDERED: Fentanyl 100 MCG/2 ML VIAL ONE (14:51)
[2021-07-25] MEDS ORDERED: Acetaminophen 325 MG TAB PO PRN (14:51)
[2021-07-25] MEDS ORDERED: HYDROcodone/Acetaminophen 5/325 mg Tablet PO PRN (14:51)
[2021-07-25] MEDS ORDERED: Ketorolac Tromethamine 30 MG/ML VIAL IVP SCH (18:00)
[2021-07-25] MEDS: HYDROcodone/Acetaminophen 5/325 mg Tablet PO PRN (19:43)
[2021-07-25 20:03] VITALS: BMI 47.8
[2021-07-25] MEDS: Sodium Chloride 0.9% 1,000 ML IV SCH (21:54)
[2021-07-25] MEDS: Vancomycin HCl 1.75 GM in Sodium Chloride 0.9% 500 ML IVPB SCH (22:10)
[2021-07-25] MEDS: Morphine 4 MG/ML VIAL SLOW IVP PRN (23:34)
[2021-07-26] MEDS ORDERED: Vancomycin 1 GM in Premix Bag 1 BAG IVPB SCH (02:00)
[2021-07-26] MEDS: HYDROcodone/Acetaminophen 5/325 mg Tablet PO PRN ×4 (02:12→20:58)
[2021-07-26] MEDS: Sodium Chloride 0.9% 1,000 ML IV SCH ×3 (02:13→23:09)
[2021-07-26 06:53] LABS: Anion Gap 13 mmol/L (10-20); BUN (Urea Nitrogen) 6 mg/dL (7.0-18.7); Calc. Creatinine Clearance 194 mL/min (70-130); Carbon Dioxide 25 mmol/L (22-29); Chloride 102 mmol/L (98-107); Glucose 97 mg/dL (70-105); Potassium 4.5 mmol/L (3.5-5.1); Sodium 135 mmol/L (136-145)
[2021-07-26] MEDS: Morphine 4 MG/ML VIAL SLOW IVP PRN ×2 (06:58→23:03)
[2021-07-26] MEDS ORDERED: Lidocaine 1% w/Epinephrine 1:100K 20 ML VIAL NERVE BLCK SCH (08:45)
[2021-07-26] MEDS: Ferrous Sulfate 325 MG TAB PO SCH (08:56)
[2021-07-26] MEDS: Enoxaparin Sodium 40 MG/0.4 ML SYRINGE SC SCH (08:57)
[2021-07-26] MEDS: Vancomycin HCl 1.75 GM in Sodium Chloride 0.9% 500 ML IVPB SCH ×2 (11:47→20:59)
[2021-07-26 12:38] LABS: #Basophils 0.1 thou/uL (0.0-0.2); #Eosinphils 0.7 thou/uL (0.0-0.7); #Lymphocytes 1.3 thou/uL (1.20-3.40); #Monocytes 0.8 thou/uL (0.11-0.59); #Neutrophils 8.3 thou/uL (1.40-6.50); %Basophils 0.6 % (0.0-1.0); %Eosinophils 6.5 % (0.0-10.0); %Lymphocytes 11.4 % (21.0-51.0); %Monocytes 7.4 % (0.0-10.0); %Neutrophils 74.1 % (42.0-75.0); Hemoglobin 8.2 g/dL (12.0-16.0); Mean Corpuscular HGB CONC 29.6 g/dL (32.0-36.0); Mean Corpuscular Hemoglobin 24.8 pg (27.0-31.0); Mean Corpuscular Volume 83.7 fL (78.0-98.0); Platelet Count 683 thou/uL (130-400); White Blood Cell (WBC) Count 11.2 thou/uL (4.8-10.8)
[2021-07-26] MEDS: Cefepime 2 GM in Sodium Chloride 0.9% 100 ML IVPB SCH (14:19)
[2021-07-26 14:53] LABS: Anisocytosis SLIGHT = 6-15 cells (100X) (0-5/hpf); Hypochromia SLIGHT = 6-15 cells (100X) (0-5/hpf); Polychromasia SLIGHT = 2-3 cells (100X) (0-2/hpf); Target Cells SLIGHT = 2-5 cells (100X) (0-1/hpf); Tear Drops SLIGHT = 2-5 cells (100X) (0-1/hpf)
[2021-07-26 14:54] LABS: Platelet Morphology Comment Appears Increased
[2021-07-27] MEDS: Cefepime 2 GM in Sodium Chloride 0.9% 100 ML IVPB SCH ×2 (00:38→11:17)
[2021-07-27 02:00] LABS: SARS-CoV-2 NAA Rapid Test Not Detected (NotDetected)
[2021-07-27] MEDS: Morphine 4 MG/ML VIAL SLOW IVP PRN (05:30)
[2021-07-27 06:37] LABS: Anion Gap 8 mmol/L (10-20); BUN (Urea Nitrogen) 4 mg/dL (7.0-18.7); Calc. Creatinine Clearance 194 mL/min (70-130); Calcium 9.1 mg/dL (7.8-10.44); Carbon Dioxide 31 mmol/L (22-29); Chloride 103 mmol/L (98-107); Glucose 98 mg/dL (70-105); Iron 19 ug/dL (50-170); Iron Binding Capacity, Total 451 mcg/dL (265-497); Potassium 4.2 mmol/L (3.5-5.1); Sodium 138 mmol/L (136-145)
[2021-07-27 06:40] LABS: #Eosinphils 0.5 thou/uL (0.0-0.7); #Lymphocytes 1.2 thou/uL (1.20-3.40); #Monocytes 0.7 thou/uL (0.11-0.59); %Basophils 0.5 % (0.0-1.0); %Eosinophils 5.1 % (0.0-10.0); %Lymphocytes 12.3 % (21.0-51.0); %Monocytes 7.1 % (0.0-10.0); Hemoglobin 7.9 g/dL (12.0-16.0); Mean Corpuscular HGB CONC 29.7 g/dL (32.0-36.0); Mean Corpuscular Hemoglobin 24.9 pg (27.0-31.0); Mean Platelet Volume 7.4 fL (7.4-10.4); Platelet Count 814 thou/uL (130-400); RBC Distribution Width 24.6 % (11.5-14.5); Red Blood Cell (RBC) Count 3.15 mill/uL (4.20-5.40); White Blood Cell (WBC) Count 9.4 thou/uL (4.8-10.8)
[2021-07-27 06:59] LABS: Ferritin 16.03 ng/mL (10-291)
[2021-07-27] MEDS ORDERED: Bupivacaine 0.25% HCL 30 ML VIAL ONE (07:38)
[2021-07-27] MEDS ORDERED: EPINEPHrine 1 MG/ML AMP ONE (07:38)
[2021-07-27] MEDS ORDERED: Vancomycin HCl 500 MG VIAL ONE (07:59)
[2021-07-27] MEDS ORDERED: Vancomycin 1 GM/200 ML BAG ONE (07:59)
[2021-07-27] MEDS ORDERED: Sodium Chloride 0.9% 100 ML ONE (08:00)
[2021-07-27] MEDS ORDERED: Midazolam HCl 2 mg/2 ml Vial ONE (08:00)
[2021-07-27] MEDS ORDERED: Fentanyl 100 MCG/2 ML VIAL ONE (08:06)
[2021-07-27] MEDS ORDERED: Lidocaine 1% PF 5 ML VIAL ONE (08:15)
[2021-07-27] MEDS ORDERED: PROPOFOL 200 MG/20 ML VIAL ONE (08:15)
[2021-07-27] MEDS ORDERED: Albuterol Sulfate HFA (OR ONLY) ONE ×2 (08:15→08:58)
[2021-07-27] MEDS ORDERED: Bacitracin Zinc Ointment 30 gm TUBE ONE (08:50)
[2021-07-27] MEDS: Vancomycin HCl 1.75 GM in Sodium Chloride 0.9% 500 ML IVPB SCH ×2 (10:20→21:11)
[2021-07-27] MEDS: Ferrous Sulfate 325 MG TAB PO SCH (10:20)
[2021-07-27] MEDS: Enoxaparin Sodium 40 MG/0.4 ML SYRINGE SC SCH (10:20)
[2021-07-27] MEDS: Sodium Chloride 0.9% 1,000 ML IV SCH ×2 (10:20→17:18)
[2021-07-27] MEDS ORDERED: Fluticasone Propionate Nasal Spray 16 gm Bottle NASAL SCH ×2 (10:45)
[2021-07-27] MEDS: HYDROcodone/Acetaminophen 5/325 mg Tablet PO PRN ×3 (11:16→19:57)
[2021-07-27 14:42] LABS: Vancomycin, Trough 12.9 ug/mL
[2021-07-28] MEDS: Cefepime 2 GM in Sodium Chloride 0.9% 100 ML IVPB SCH ×3 (00:38→23:10)
[2021-07-28] MEDS: HYDROcodone/Acetaminophen 5/325 mg Tablet PO PRN ×5 (00:50→23:11)
[2021-07-28] MEDS: Sodium Chloride 0.9% 1,000 ML IV SCH ×2 (02:33→13:20)
[2021-07-28 08:24] LABS: Vancomycin, Trough 8.4 ug/mL
[2021-07-28] MEDS: Morphine 4 MG/ML VIAL SLOW IVP PRN ×3 (09:08→20:56)
[2021-07-28] MEDS: Ferrous Sulfate 325 MG TAB PO SCH (10:47)
[2021-07-28] MEDS: Cyanocobalamin (Vitamin B-12) 1,000 MCG TAB PO SCH (10:49)
[2021-07-28] MEDS: Enoxaparin Sodium 40 MG/0.4 ML SYRINGE SC SCH (10:49)
[2021-07-28] MEDS: Multivitamin W/ Minerals 1 TAB PO SCH (10:50)
[2021-07-28] MEDS: Vancomycin HCl 1.25 GM in Sodium Chloride 0.9% 250 ML 250 ML IVPB SCH ×2 (10:50→17:37)
[2021-07-28] MEDS: Folic Acid 1 MG TAB PO SCH (10:50)
[2021-07-29] MEDS: Vancomycin HCl 1.25 GM in Sodium Chloride 0.9% 250 ML 250 ML IVPB SCH ×3 (01:30→18:22)
[2021-07-29] MEDS: Sodium Chloride 0.9% 1,000 ML IV SCH ×3 (02:27→21:06)
[2021-07-29] MEDS: Morphine 4 MG/ML VIAL SLOW IVP PRN ×3 (06:56→21:06)
[2021-07-29] MEDS: HYDROcodone/Acetaminophen 5/325 mg Tablet PO PRN ×4 (08:56→23:49)
[2021-07-29] MEDS: Folic Acid 1 MG TAB PO SCH (08:58)
[2021-07-29] MEDS: Ferrous Sulfate 325 MG TAB PO SCH (08:58)
[2021-07-29] MEDS: Cyanocobalamin (Vitamin B-12) 1,000 MCG TAB PO SCH (08:59)
[2021-07-29] MEDS: Multivitamin W/ Minerals 1 TAB PO SCH (08:59)
[2021-07-29] MEDS: Enoxaparin Sodium 40 MG/0.4 ML SYRINGE SC SCH (09:02)
[2021-07-29 09:34] LABS: Vancomycin, Trough 14.4 ug/mL
[2021-07-29] MEDS ORDERED: Lidocaine 4% Topical Sol 50 ML BOT TOP SCH (10:15)
[2021-07-29] MEDS: Cefepime 2 GM in Sodium Chloride 0.9% 100 ML IVPB SCH (12:01)
[2021-07-30] MEDS: Cefepime 2 GM in Sodium Chloride 0.9% 100 ML IVPB SCH ×2 (00:30→11:34)
[2021-07-30] MEDS: Morphine 4 MG/ML VIAL SLOW IVP PRN ×3 (02:33→18:10)
[2021-07-30] MEDS: Sodium Chloride 0.9% 1,000 ML IV SCH ×2 (04:30→15:24)
[2021-07-30] MEDS: HYDROcodone/Acetaminophen 5/325 mg Tablet PO PRN ×4 (04:47→20:58)
[2021-07-30] MEDS: Vancomycin HCl 1.25 GM in Sodium Chloride 0.9% 250 ML 250 ML IVPB SCH ×3 (05:53→17:20)
[2021-07-30 08:29] LABS: Vancomycin, Trough 7.6 ug/mL
[2021-07-30] MEDS: Cyanocobalamin (Vitamin B-12) 1,000 MCG TAB PO SCH (09:45)
[2021-07-30] MEDS: Multivitamin W/ Minerals 1 TAB PO SCH (09:46)
[2021-07-30] MEDS: Ferrous Sulfate 325 MG TAB PO SCH (09:46)
[2021-07-30] MEDS: Folic Acid 1 MG TAB PO SCH (09:47)
[2021-07-30] MEDS: Enoxaparin Sodium 40 MG/0.4 ML SYRINGE SC SCH (09:49)
[2021-07-30] MEDS ORDERED: predniSONE 20 MG TAB PO SCH (19:15)
[2021-07-30] MEDS: Gabapentin 300 MG CAP PO SCH (20:58)
[2021-07-31] MEDS: Morphine 4 MG/ML VIAL SLOW IVP PRN ×4 (00:01→18:14)
[2021-07-31] MEDS: HYDROcodone/Acetaminophen 5/325 mg Tablet PO PRN ×5 (02:44→20:34)
[2021-07-31] MEDS ORDERED: predniSONE 20 MG TAB PO SCH (08:00)
[2021-07-31] MEDS: Ferrous Sulfate 325 MG TAB PO SCH (08:08)
[2021-07-31] MEDS: Folic Acid 1 MG TAB PO SCH (08:08)
[2021-07-31] MEDS: Cyanocobalamin (Vitamin B-12) 1,000 MCG TAB PO SCH (08:08)
[2021-07-31] MEDS: Multivitamin W/ Minerals 1 TAB PO SCH (08:08)
[2021-07-31] MEDS: Enoxaparin Sodium 40 MG/0.4 ML SYRINGE SC SCH (08:09)
[2021-07-31] MEDS: methylPREDNISolone Sod Succ 40 MG VIAL IVP SCH ×2 (18:08→23:14)
[2021-07-31] MEDS: Gabapentin 300 MG CAP PO SCH (20:02)
[2021-08-01] MEDS: Morphine 4 MG/ML VIAL SLOW IVP PRN ×2 (00:48→23:03)
[2021-08-01] MEDS: HYDROcodone/Acetaminophen 5/325 mg Tablet PO PRN ×5 (03:49→23:20)
[2021-08-01] MEDS: methylPREDNISolone Sod Succ 40 MG VIAL IVP SCH ×3 (05:30→23:07)
[2021-08-01] MEDS: Multivitamin W/ Minerals 1 TAB PO SCH (08:58)
[2021-08-01] MEDS: Folic Acid 1 MG TAB PO SCH (08:58)
[2021-08-01] MEDS: Cyanocobalamin (Vitamin B-12) 1,000 MCG TAB PO SCH (08:58)
[2021-08-01] MEDS: Ferrous Sulfate 325 MG TAB PO SCH (08:59)
[2021-08-01] MEDS: Enoxaparin Sodium 40 MG/0.4 ML SYRINGE SC SCH (08:59)
[2021-08-01] MEDS ORDERED: cloNIDine 0.1 MG TAB PO PRN (11:57)
[2021-08-01] MEDS: Gabapentin 300 MG CAP PO SCH (20:28)
[2021-08-01] MEDS: traZODone HCl 50 MG TAB PO SCH (20:29)
[2021-08-02] MEDS: HYDROcodone/Acetaminophen 5/325 mg Tablet PO PRN ×4 (04:04→18:17)
[2021-08-02] MEDS: Ferrous Sulfate 325 MG TAB PO SCH (08:51)
[2021-08-02] MEDS: Cyanocobalamin (Vitamin B-12) 1,000 MCG TAB PO SCH (08:51)
[2021-08-02] MEDS: Multivitamin W/ Minerals 1 TAB PO SCH (08:51)
[2021-08-02] MEDS: Folic Acid 1 MG TAB PO SCH (08:52)
[2021-08-02] MEDS: Enoxaparin Sodium 40 MG/0.4 ML SYRINGE SC SCH (08:52)
[2021-08-02] MEDS: Morphine 4 MG/ML VIAL SLOW IVP PRN ×2 (09:44→23:34)
[2021-08-02] MEDS: methylPREDNISolone Sod Succ 40 MG VIAL IVP SCH ×2 (13:23→23:32)
[2021-08-02] MEDS: Gabapentin 300 MG CAP PO SCH (21:05)
[2021-08-02] MEDS: traZODone HCl 50 MG TAB PO SCH (21:07)
[2021-08-03] MEDS: HYDROcodone/Acetaminophen 5/325 mg Tablet PO PRN ×2 (05:21→11:31)
[2021-08-03] MEDS: Enoxaparin Sodium 40 MG/0.4 ML SYRINGE SC SCH (08:33)
[2021-08-03] MEDS: Cyanocobalamin (Vitamin B-12) 1,000 MCG TAB PO SCH (08:34)
[2021-08-03] MEDS: Ferrous Sulfate 325 MG TAB PO SCH (08:34)
[2021-08-03] MEDS: Multivitamin W/ Minerals 1 TAB PO SCH (08:34)
[2021-08-03] MEDS: Folic Acid 1 MG TAB PO SCH (08:34)
[2021-08-03] MEDS: methylPREDNISolone Sod Succ 40 MG VIAL IVP SCH (11:31)
[2021-08-03 13:54] VITALS: BP 170/89; TEMP 98
[2021-08-03 19:12] LABS: SARS-CoV-2 PCR by NAA Not Detected (NotDetected)
== END 2021-08-03 13:40 | disposition home or self-care (01) | DRG 603 ==
LOC: ERS 11:02 → ERHOLD 14:24 → SJJU 17:32
PROVIDERS: ADMIT Family Medicine; ATTEND Internal Medicine
PROC: 0HBKXZX Excision of Right Lower Leg Skin, External Approach, Diagnostic (ICD-10-PCS; principal; 2021-07-27)
DX: L88 Pyoderma gangrenosum (principal); L97.319 Non-pressure chronic ulcer of right ankle with unspecified severity; K51.90 Ulcerative colitis, unspecified, without complications; Z20.822 Contact with and (suspected) exposure to COVID-19; L03.115 Cellulitis of right lower limb; J45.20 Mild intermittent asthma, uncomplicated; L02.415 Cutaneous abscess of right lower limb; D63.8 Anemia in other chronic diseases classified elsewhere; F32.9 Major depressive disorder, single episode, unspecified; F17.210 Nicotine dependence, cigarettes, uncomplicated; E66.01 Morbid (severe) obesity due to excess calories; G47.09 Other insomnia; T38.0X5A Adverse effect of glucocorticoids and synthetic analogues, initial encounter; E53.8 Deficiency of other specified B group vitamins; Z68.42 Body mass index [BMI] 45.0-49.9, adult; Z88.1 Allergy status to other antibiotic agents; Z79.899 Other long term (current) drug therapy; Z98.51 Tubal ligation status
CPT/HCPCS: 36415; 80048; 80053; 80202; 82607; 82728; 82746; 83540; 83550; 83605; 84703; 85025; 85652; 86140; 87040; 87070; 87077; 87186; 87205; 87324; 87449; 88305; 96365; 96367; 96375; A9579; J0171; J0692; J1650; J2250; J2270; J2704; J2920; J3010; J3370; J3490; J7030; J7050; J7512; J8499; S0020; U0002; U0003; U0005

== ENCOUNTER 2022-07-16 21:52 | Emergency (ER) | payer BC ==
[2022-07-16 22:56] LABS: Hemoglobin 11.6 g/dL (12.0-16.0); Mean Corpuscular HGB CONC 32.9 g/dL (32.0-36.0); Mean Corpuscular Hemoglobin 30.6 pg (27.0-31.0); Mean Corpuscular Volume 92.8 fL (78.0-98.0); Mean Platelet Volume 6.4 fL (7.4-10.4); Platelet Count 426 thou/uL (130-400); RBC Distribution Width 12.1 % (11.5-14.5); Red Blood Cell (RBC) Count 3.81 mill/uL (4.20-5.40); White Blood Cell (WBC) Count 13.3 thou/uL (4.8-10.8)
[2022-07-16 23:12] LABS: ALT (SGPT) 13 U/L (8-55); AST (SGOT) 15 U/L (5-34); Albumin 3.6 g/dL (3.5-5.0); Alkaline Phosphatase 74 U/L (40-110); Anion Gap 16 mmol/L (10-20); BUN (Urea Nitrogen) 4 mg/dL (7.0-18.7); Band 7 % (5-11); Bilirubin, Total 0.3 mg/dL (0.2-1.2); Calc. Creatinine Clearance 0 mL/min (70-130); Calcium 8.6 mg/dL (7.8-10.44); Carbon Dioxide 28 mmol/L (22-29); Chloride 98 mmol/L (98-107); Eosinophils 2 % (0-10); Estimated GFR 88; Globulin 2.6 g/dL (2.4-3.5); Glucose 87 mg/dL (70-105); Lipase 62 U/L (8-78); Lymphocytes 36 % (21-51); MDiff Complete? YES; Monocytes 11 % (0-10); Myelocyte 1 % (0-0); Neutrophil 43 % (42-75); Nucleated RBC 1 % (0); Potassium 3.5 mmol/L (3.5-5.1); Protein, Total 6.2 g/dL (6.0-8.3); Sodium 138 mmol/L (136-145)
[2022-07-17] MEDS ORDERED: diphenhydrAMINE 25 MG CAP ONE (00:26)
== END 2022-07-17 00:39 | disposition home or self-care (01) ==
LOC: ERS 21:52
DX: R06.02 Shortness of breath (principal); R53.83 Other fatigue; D64.9 Anemia, unspecified; F17.210 Nicotine dependence, cigarettes, uncomplicated
CPT/HCPCS: 36415; 71045; 80053; 83690; 84484; 85025; 93005

== ENCOUNTER 2022-08-27 09:58 | Observation (INO) | payer BC ==
[2022-08-27] MEDS ORDERED: Morphine 4 MG/ML VIAL SLOW IVP SCH (10:45)
[2022-08-27] MEDS ORDERED: Ondansetron PF 4 MG/2 ML Vial IVP SCH (10:45)
[2022-08-27] MEDS ORDERED: Cefepime 2 GM in Sodium Chloride 0.9% 100 ML IVPB SCH (11:00)
[2022-08-27] MEDS ORDERED: VANCOMYCIN 2 GRAM/500 ML BAG 2 GM in Premix Bag 1 BAG IVPB SCH (11:00)
[2022-08-27 11:31] LABS: ALT (SGPT) 16 U/L (8-55); AST (SGOT) 13 U/L (5-34); Albumin 3.8 g/dL (3.5-5.0); Alkaline Phosphatase 103 U/L (40-110); Anion Gap 14 mmol/L (10-20); BUN (Urea Nitrogen) 14 mg/dL (7.0-18.7); Bilirubin, Total 0.3 mg/dL (0.2-1.2); Calc. Creatinine Clearance 0 mL/min (70-130); Carbon Dioxide 27 mmol/L (22-29); Chloride 103 mmol/L (98-107); Estimated GFR 90; Globulin 2.7 g/dL (2.4-3.5); Glucose 168 mg/dL (70-105); Lipase 93 U/L (8-78); Potassium 4.4 mmol/L (3.5-5.1); Protein, Total 6.5 g/dL (6.0-8.3); Sodium 140 mmol/L (136-145)
[2022-08-27 11:34] LABS: Hemoglobin 8.5 g/dL (12.0-16.0); Mean Corpuscular HGB CONC 30.4 g/dL (32.0-36.0); Mean Corpuscular Volume 85.5 fL (78.0-98.0); Mean Platelet Volume 7.1 fL (7.4-10.4); Platelet Count 433 thou/uL (130-400); RBC Distribution Width 16.9 % (11.5-14.5); Red Blood Cell (RBC) Count 3.25 mill/uL (4.20-5.40); White Blood Cell (WBC) Count 12.4 thou/uL (4.8-10.8)
[2022-08-27] MEDS ORDERED: Morphine 4 MG/ML VIAL ONE (11:55)
[2022-08-27] MEDS ORDERED: Ondansetron PF 4 MG/2 ML Vial ONE (11:55)
[2022-08-27] MEDS ORDERED: Cefepime 2 GM VIAL ONE (11:55)
[2022-08-27 12:16] LABS: Band 3 % (5-11); Hypochromia SLIGHT = 6-15 cells (100X) (0-5/hpf); Lymphocytes 15 % (21-51); MDiff Complete? YES; Monocytes 2 % (0-10); Neutrophil 80 % (42-75); Nucleated RBC 1 % (0); Platelet Morphology Comment Appears Increased; Polychromasia SLIGHT = 2-3 cells (100X) (0-2/hpf)
[2022-08-27] MEDS ORDERED: Enoxaparin Sodium 40 MG/0.4 ML SYRINGE SC SCH (13:00)
[2022-08-27] MEDS ORDERED: Meropenem 1 GM in Sodium Chloride 0.9% 100 ML IVPB SCH ×2 (14:00→17:00)
[2022-08-27 14:29] LABS: Troponin I 0.013 ng/mL (< 0.028)
[2022-08-27] MEDS ORDERED: Iopamidol 370 76% 50 ML VIAL FS ONE (14:30)
[2022-08-27] MEDS ORDERED: Magnevist 469MG/ML 20 ML VIAL ONE (14:45)
[2022-08-27] MEDS: Gabapentin 100 MG CAP PO SCH (17:13)
[2022-08-27] MEDS: Morphine 2 MG/ML VIAL SLOW IVP PRN ×2 (17:27→21:21)
[2022-08-27] MEDS ORDERED: Enoxaparin Sodium 40 MG/0.4 ML SYRINGE ONE (17:29)
[2022-08-27] MEDS ORDERED: Morphine 2 MG/ML VIAL ONE ×2 (17:29→21:17)
[2022-08-27] MEDS: traMADol HCl 50 MG TAB PO PRN (18:22)
[2022-08-27] MEDS ORDERED: traMADol HCl 50 MG TAB ONE (18:24)
[2022-08-27 18:44] LABS: Bacteria/HPF 1+ HPF (None Seen); Bilirubin Negative (Negative); Blood, Urine 3+ (Negative); Clarity Clear (Clear); Glucose, Urine (Dipstick) Normal (Negative); Ketone, Urine Negative (Negative); Leukocyte 500 Leu/uL (Negative); Nitrite Negative (Negative); Protein, Urine (Dipstick) Negative (Neg-Trace); Specific Gravity, Urine 1.032 (1.002-1.036); Squamous Epithelial 0-3 HPF (0-3); Urobilinogen Normal mg/dL (Less than 2); pH, Urine 6.5 (5.0-9.0)
[2022-08-27 18:56] LABS: Troponin I Less than 0.010 ng/mL (< 0.028)
[2022-08-27 19:41] LABS: SARS-CoV-2 NAA Rapid Test Not Detected (NotDetected)
[2022-08-27 23:58] VITALS: BMI 49.6
[2022-08-28] MEDS: Gabapentin 100 MG CAP PO SCH ×2 (00:45→08:40)
[2022-08-28] MEDS: Vancomycin 1 GM in Premix Bag 1 BAG IVPB SCH ×2 (00:46→13:49)
[2022-08-28] MEDS: Meropenem 1 GM in Sodium Chloride 0.9% 100 ML IVPB SCH ×3 (00:46→18:13)
[2022-08-28] MEDS: Morphine 2 MG/ML VIAL SLOW IVP PRN ×5 (01:33→20:25)
[2022-08-28] MEDS: traMADol HCl 50 MG TAB PO PRN ×4 (02:23→21:58)
[2022-08-28] MEDS: Enoxaparin Sodium 40 MG/0.4 ML SYRINGE SC SCH (08:42)
[2022-08-28 09:07] LABS: Anion Gap 11 mmol/L (10-20); BUN (Urea Nitrogen) 13 mg/dL (7.0-18.7); Calc. Creatinine Clearance 200 mL/min (70-130); Calcium 8.1 mg/dL (7.8-10.44); Carbon Dioxide 29 mmol/L (22-29); Chloride 103 mmol/L (98-107); Estimated GFR 105; Glucose 78 mg/dL (70-105); Potassium 4.1 mmol/L (3.5-5.1); Sodium 139 mmol/L (136-145)
[2022-08-28 11:25] LABS: #Eosinphils 0.3 thou/uL (0.0-0.7); #Monocytes 1.1 thou/uL (0.11-0.59); #Neutrophils 6.4 thou/uL (1.40-6.50); %Basophils 0.2 % (0.0-1.0); %Eosinophils 2.2 % (0.0-10.0); %Monocytes 9.5 % (0.0-10.0); %Neutrophils 54.1 % (42.0-75.0); Band 2 % (5-11); Eosinophils 2 % (0-10); Hemoglobin 8.1 g/dL (12.0-16.0); Hypochromia MODERATE=16-30 cells (100X) (0-5/hpf); Lymphocytes 35 % (21-51); MDiff Complete? YES; Mean Corpuscular HGB CONC 29.5 g/dL (32.0-36.0); Mean Corpuscular Hemoglobin 25.4 pg (27.0-31.0); Mean Corpuscular Volume 86.2 fL (78.0-98.0); Mean Platelet Volume 7.3 fL (7.4-10.4); Monocytes 5 % (0-10); Neutrophil 56 % (42-75); Platelet Count 403 thou/uL (130-400); Platelet Morphology Comment Appears Increased; Polychromasia SLIGHT = 2-3 cells (100X) (0-2/hpf); RBC Distribution Width 16.9 % (11.5-14.5); White Blood Cell (WBC) Count 11.8 thou/uL (4.8-10.8)
[2022-08-28] MEDS ORDERED: Naproxen 500 MG TAB PO SCH (14:00)
[2022-08-28] MEDS ORDERED: predniSONE 5 MG TAB PO SCH (14:25)
[2022-08-28] MEDS ORDERED: predniSONE 20 MG TAB PO SCH ×2 (15:45→21:00)
[2022-08-28] MEDS ORDERED: Mesalamine [Mesalamine] 1.2 GM Tablet.Dr PO SCH (16:15)
[2022-08-28] MEDS: Acetaminophen 500 MG TAB PO PRN (16:48)
[2022-08-28] MEDS: Gabapentin 300 MG CAP PO SCH (20:23)
[2022-08-28] MEDS: Lidocaine 4% Topical Sol 50 ML BOT TOP SCH (20:24)
[2022-08-29 00:17] LABS: Vancomycin, Trough 7.4 ug/mL
[2022-08-29] MEDS: VANCOMYCIN 1.25 GM/250 ML BAG 1.25 GM in Premix Bag 1 BAG IVPB SCH ×2 (01:20→11:44)
[2022-08-29] MEDS: Morphine 2 MG/ML VIAL SLOW IVP PRN ×3 (01:21→16:49)
[2022-08-29] MEDS: Meropenem 1 GM in Sodium Chloride 0.9% 100 ML IVPB SCH ×2 (01:59→08:57)
[2022-08-29] MEDS: traMADol HCl 50 MG TAB PO PRN ×2 (04:51→12:04)
[2022-08-29 05:03] LABS: #Basophils 0.1 thou/uL (0.0-0.2); #Eosinphils 0.1 thou/uL (0.0-0.7); #Lymphocytes 1.1 thou/uL (1.20-3.40); #Monocytes 0.5 thou/uL (0.11-0.59); #Neutrophils 12.2 thou/uL (1.40-6.50); %Basophils 0.6 % (0.0-1.0); %Eosinophils 0.5 % (0.0-10.0); %Lymphocytes 7.9 % (21.0-51.0); %Monocytes 3.4 % (0.0-10.0); %Neutrophils 87.7 % (42.0-75.0); Hemoglobin 8.8 g/dL (12.0-16.0); Mean Corpuscular Hemoglobin 25.5 pg (27.0-31.0); Mean Corpuscular Volume 86.8 fL (78.0-98.0); Mean Platelet Volume 7.4 fL (7.4-10.4); Platelet Count 376 thou/uL (130-400); Red Blood Cell (RBC) Count 3.45 mill/uL (4.20-5.40); White Blood Cell (WBC) Count 13.9 thou/uL (4.8-10.8)
[2022-08-29 05:12] LABS: Mean Corpuscular HGB CONC 29.4 g/dL (32.0-36.0)
[2022-08-29 05:16] LABS: Anion Gap 14 mmol/L (10-20); BUN (Urea Nitrogen) 9 mg/dL (7.0-18.7); Calc. Creatinine Clearance 214 mL/min (70-130); Calcium 8.8 mg/dL (7.8-10.44); Carbon Dioxide 25 mmol/L (22-29); Chloride 104 mmol/L (98-107); Estimated GFR 111; Glucose 116 mg/dL (70-105); Iron 18 ug/dL (50-170); Iron Binding Capacity, Total 454 mcg/dL (265-497); Potassium 4.5 mmol/L (3.5-5.1); Sodium 138 mmol/L (136-145)
[2022-08-29] MEDS: Gabapentin 300 MG CAP PO SCH (08:59)
[2022-08-29] MEDS: Enoxaparin Sodium 40 MG/0.4 ML SYRINGE SC SCH (09:00)
[2022-08-29] MEDS ORDERED: predniSONE 20 MG TAB PO SCH (09:00)
[2022-08-29] MEDS ORDERED: Mesalamine [Mesalamine] 1.2 GM Tablet.Dr PO SCH (09:00)
[2022-08-29] MEDS: Lidocaine 4% Topical Sol 50 ML BOT TOP SCH (11:20)
[2022-08-29] MEDS: Acetaminophen 500 MG TAB PO PRN (12:03)
[2022-08-29 16:07] VITALS: BP 129/61; TEMP 98.1
== END 2022-08-29 18:21 | disposition home or self-care (01) ==
LOC: SUATTDRO 09:58 → ERS 09:58 → ERHOLD 12:30 → 2SW 22:32
PROVIDERS: ADMIT Internal Medicine; ATTEND Internal Medicine
DX: L88 Pyoderma gangrenosum (principal); L03.115 Cellulitis of right lower limb; L97.512 Non-pressure chronic ulcer of other part of right foot with fat layer exposed; K51.00 Ulcerative (chronic) pancolitis without complications; K21.9 Gastro-esophageal reflux disease without esophagitis; J45.909 Unspecified asthma, uncomplicated; F17.200 Nicotine dependence, unspecified, uncomplicated; F12.10 Cannabis abuse, uncomplicated; D64.9 Anemia, unspecified; E66.9 Obesity, unspecified; Z68.42 Body mass index [BMI] 45.0-49.9, adult; Z91.14 Patient's other noncompliance with medication regimen; Z79.52 Long term (current) use of systemic steroids; Z79.899 Other long term (current) drug therapy; Z88.0 Allergy status to penicillin; Z20.822 Contact with and (suspected) exposure to COVID-19
CPT/HCPCS: 36415; 71045; 74177; 80048; 80053; 80202; 81003; 81015; 82550; 82728; 83540; 83550; 83605; 83690; 83880; 84145; 84484; 85025; 85652; 86140; 87040; 93005; 93970; 94760; 96365; 96366; 96372; 96375; 96376; 97139; A9579; G0378; J0692; J1650; J2185; J2270; J2405; J3370; J3490; J7512; Q9967; U0002